=== PATIENT | female | born 1985 | race African-American/Black ===

== ENCOUNTER 2020-12-16 10:29 | Emergency (ER) | payer OTHER ==
[2020-12-16 10:42] VITALS: BP 154/87; PULSE 80; RESP 18; TEMP 98.3
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
[2020-12-16] MEDS ORDERED: ACET/COD 300 MG/30 MG STARTER PACK 6 TAB BTL PO STA (11:53)
[2020-12-16] MEDS ORDERED: CYCLOBENZAPRINE 10MG STARTER 3 TAB BTL PO STA (11:53)
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
== END 2020-12-16 12:17 | disposition home or self-care (01) ==
LOC: EC 10:29
DX: S00.93XA Contusion of unspecified part of head, initial encounter (principal); M54.2 Cervicalgia; V89.2XXA Person injured in unspecified motor-vehicle accident, traffic, initial encounter
CPT/HCPCS: 70450; 72125; 99284